=== PATIENT | male | born 1950 | race Hispanic/Latino ===

== ENCOUNTER 2020-12-19 08:31 | Emergency (ER) | payer MEDICARE, OTHER ==
[2020-12-19] MEDS ORDERED: Boostrix 0.5 ML (Tdap) VIAL ONE (09:30)
== END 2020-12-19 10:33 | disposition home or self-care (01) ==
LOC: CSHERS 08:31
DX: S80.11XA Contusion of right lower leg, initial encounter (principal); M25.512 Pain in left shoulder; E78.00 Pure hypercholesterolemia, unspecified; E78.5 Hyperlipidemia, unspecified; Z86.73 Personal history of transient ischemic attack (TIA), and cerebral infarction without residual deficits; Z23 Encounter for immunization; W11.XXXA Fall on and from ladder, initial encounter
CPT/HCPCS: 70450; 90471; 90715